=== PATIENT | male | born 2000 | race Caucasian/White ===

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

== ENCOUNTER 2022-05-25 05:44 | Emergency (ER) | payer OTHER, BC, SELFPAY ==
--- NOTE | ~2022-05-25 | CT_ITS ---
EXAMINATION: CT abdomen pelvis wo con DATE: 05/25/2022 08:48 INDICATION: Hematuria, left lower abdominal pain TECHNIQUE: Computed tomography (CT) of the abdomen and pelvis was performed without intravenous contr ast. The dose-length product (DLP) was 764.43 mGy-cm. Automated exposure control and iterative recons truction technique were employed. COMPARISON: None FINDINGS: The lung bases are clear. The heart size is normal. The liver is diffusely low in attenuati on when compared with the spleen, consistent with hepatic steatosis. Punctate calcifications in an ot herwise normal spleen likely represent healed granulomatous disease. The pancreas, gallbladder, and a drenal glands are normal. The kidneys are unremarkable. No stones are identified in the kidneys, uret ers, or bladder. No hydronephrosis or hydroureter. No pathologically enlarged abdominal or pelvic lym ph nodes are identified. There is no free intraperitoneal gas or evidence of bowel obstruction. The a ppendix is normal. IMPRESSION: 1. No CT correlate for the patient's symptoms. 2. Diffuse hepatic steatosis. Reviewed, dictated and finalized at location A. [employer]
[2022-05-25 05:47] VITALS: BP 137/84; PULSE 89; RESP 16; TEMP 36.3; O2SAT 100
[2022-05-25 06:43] LABS: Mucus Urine Few /lpf; RBC Urine >75 /hpf (0-2)
[2022-05-25 06:44] LABS: Basophils Percent Auto 0.2 % (0.2-1.2); Eosinophils Absolute Auto 0.1 K/mm3 (0-0.3); Eosinophils Percent Auto 0.5 % (0-4.4); Hemoglobin 16.1 g/dL (14.0-18.0); Immature Granulocyte Absolute 0.05 K/mm3 (0.00-0.031); Immature Granulocyte Percent A 0.5 % (0-0.5); Lymphocytes Absolute Auto 2.14 K/mm3 (0.9-3.2); Lymphocytes Percent Auto 22.1 % (18.3-44.2); Mean Corpuscular Hemoglobin 30.9 pg (26-34); Mean Corpuscular Volume 88.3 fl (80-100); Mean Platelet Volume 10.2 fl (7.4-10.4); Monocytes Absolute Auto 0.7 K/mm3 (0.1-0.6); Monocytes Percent Auto 7.2 % (2.6-8.5); Neutrophils Absolute Auto 6.7 K/mm3 (1.3-6.7); Neutrophils Percent Auto 69.5 % (45.5-73.1); Platelet Count Result 319 k/mm3 (150-375); Red Blood Count 5.21 M/mm3 (4.6-6.20); Red Cell Distribution Width 12.5 % (11.5-14.5); White Blood Count 9.7 K/mm3 (4.5-10.0)
[2022-05-25 06:45] LABS: Alanine Aminotransferase 70 U/L (6-50); Albumin Level 5.1 g/dL (3.5-5.1); Alkaline Phosphatase 64 U/L (38-126); Anion Gap 11 mmol/L (8-16); Aspartate Amino Transferase 44 U/L (17-59); Bilirubin,Total 0.6 mg/dL (0.2-1.3); Blood Urea Nitrogen 15 mg/dL (9-20); Calcium 9.4 mg/dL (8.4-10.2); Carbon Dioxide 24 mmol/L (22-30); Chloride 101 mmol/L (98-107); Estimated CRCL calculation 139 ml/min; Estimated Glomerular Filt Rate > 60; Glucose 127 mg/dL (65-110); Potassium 3.5 mmol/L (3.4-5.0); Sodium 136 mmol/L (137-145)
[2022-05-25 06:50] LABS: Add Urine Microscopic? YES; Appearance Urine Cloudy (Clear); Color Urine Light Red (Yellow)
--- NOTE | 2022-05-25 08:33 | ED.GENADULT ---
HPI - General Adult General Chief complaint: Abdominal Pain Stated complaint: abdominal pain Time Seen by Provider: 05/25/22 08:28 History of Present Illness HPI narrative: 22-year-old male presents for evaluation of left flank pain. The pain woke him up at 2 and was severe in intensity for about 2 hours. Related Data Allergies Allergy/AdvReac Type Severity Reaction Status Date / Time No Known Allergies Allergy Verified 05/25/22 05:45 [facility] Past Medical History Medical History (Updated 05/21/20 @ 00:00 by Background Damarlene) Anxiety Finger fracture H/O hypospadias Course Vital Signs Vital signs: Vital Signs Temperature 97.3 F L 05/25/22 05:47 Pulse Rate 89 05/25/22 05:47 Respiratory Rate 16 05/25/22 05:47 Blood Pressure 137/84 05/25/22 05:47 Pulse Oximetry 100 05/25/22 05:47 Oxygen Delivery Room Air 05/25/22 05:47 Temperature 97.3 F L 05/25/22 05:47 Pulse Rate 89 05/25/22 05:47 Respiratory Rate 16 05/25/22 05:47 Blood Pressure 137/84 05/25/22 05:47 Pulse Oximetry 100 05/25/22 05:47 Oxygen Delivery Room Air 05/25/22 05:47 Medical Decision Making Vital Signs Vital Signs: Vital Signs Temperature 97.3 F L 05/25/22 05:47 Pulse Rate 89 05/25/22 05:47 Respiratory Rate 16 05/25/22 05:47 Blood Pressure 137/84 05/25/22 05:47 Pulse Oximetry 100 05/25/22 05:47 Oxygen Delivery Room Air 05/25/22 05:47 Temperature 97.3 F L 05/25/22 05:47 Pulse Rate 89 05/25/22 05:47 Respiratory Rate 16 05/25/22 05:47 Blood Pressure 137/84 05/25/22 05:47 Pulse Oximetry 100 05/25/22 05:47 Oxygen Delivery Room Air 05/25/22 05:47 Lab Data 05/25/22 06:14 05/25/22 06:14 Labs: Lab Results 05/25/22 05/25/22 05/25/22 Range/Units 05:54 06:14 06:14 WBC 9.7 (4.5-10.0) K/mm3 RBC 5.21 (4.6-6.20) M/mm3 Hgb 16.1 (14.0-18.0) g/dL Hct 46.0 (42.0-52.0) % MCV 88.3 (80-100) fl MCH 30.9 (26-34) pg MCHC 35.0 (32-36) g/dl RDW 12.5 (11.5-14.5) % Plt Count 319 (150-375) k/mm3 MPV 10.2 (7.4-10.4) fl Immature Gran % (Auto) 0.5 (0-0.5) % Neut % (Auto) 69.5 (45.5-73.1) % Lymph % (Auto) 22.1 (18.3-44.2) % Hill % (Auto) 7.2 (2.6-8.5) % Eos % (Auto) 0.5 (0-4.4) % Baso % (Auto) 0.2 (0.2-1.2) % Lymph # (Auto) 2.14 (0.9-3.2) K/mm3 Hill # (Auto) 0.7 H (0.1-0.6) K/mm3 Eos # (Auto) 0.1 (0-0.3) K/mm3 Baso # (Auto) 0.0 (0.0-0.1) K/mm3 Abs Immat Gran (auto) 0.05 H (0.00-0.031) K/mm3 Absolute Neuts (auto) 6.7 (1.3-6.7) K/mm3 Absolute Nucleated RBC 0.0 (0.0-0.012) K/mm3 Nucleated RBC % 0.0 (0.0-0.2) % Sodium 136 L (137-145) mmol/L Potassium 3.5 (3.4-5.0) mmol/L Chloride 101 (98-107) mmol/L Carbon Dioxide 24 (22-30) mmol/L Anion Gap 11 (8-16) mmol/L BUN 15 (9-20) mg/dL Creatinine 0.90 (0.7-1.3) mg/dL Estim Creat Clear Calc 139 ml/min Estimated GFR > 60 (59 - ) Glucose 127 H (65-110) mg/dL Calcium 9.4 (8.4-10.2) mg/dL Total Bilirubin 0.6 (0.2-1.3) mg/dL AST 44 (17-59) U/L ALT 70 H (6-50) U/L Alkaline Phosphatase 64 (38-126) U/L Total Protein 9.0 H (6.3-8.2) g/dL Albumin 5.1 (3.5-5.1) g/dL Urine Color Light red H (Yellow) Urine Appearance Cloudy H (Clear) Urine pH TNP Ur Specific [place] TNP Urine Protein TNP Urine Glucose (UA) TNP Urine Ketones TNP Ur Blood (Man) TNP Urine Nitrate TNP Urine Bilirubin TNP Urine Urobilinogen TNP Leukocyte Esterase Rfl TNP Urine RBC >75 H (0-2) /hpf Urine WBC 10-15 H /hpf Urine Mucus Few H /lpf Discharge Plan Discharge Instructions: Antibiotic Form Prescriptions: No Action chlorhexidine gluconate [Scrub Chlorhexidine Gluconate] 4 % liquid 1 applic topical Q1-2D Qty: 3800 0RF Rx Instructions: as a single dose
[2022-05-25] MEDS: LACTATED RINGERS 1,000 ML 999 ML IV CONT (09:22)
[2022-05-25 12:02] VITALS: BP 127/75; PULSE 82; RESP 18; O2SAT 99
== END 2022-05-25 12:04 | disposition home or self-care (01) ==
PROVIDERS: Emergency Medicine; Emergency Provider Emergency Medicine
DX: R10.9 Unspecified abdominal pain (principal); K76.0 Fatty (change of) liver, not elsewhere classified
CPT/HCPCS: 36415; 74176; 80053; 81001; 85025; 87086; 96360; 99284; J7120

== ENCOUNTER 2023-02-13 15:56 | Emergency (ER) | payer OTHER, BC, SELFPAY ==
[2023-02-13 16:04] VITALS: BP 135/74; PULSE 105; RESP 16; TEMP 36.8; O2SAT 99
--- NOTE | 2023-02-13 16:04 | ED.URI ---
HPI - URI/Sore Throat General Chief Complaint: Upper Respiratory Infection Stated Complaint: Sinus Congestion/Cough Source: patient and RN notes reviewed History of Present Illness HPI Narrative: 22 yo M presents to urgent care with complaints of congestion for about 1 week. Pt states he developed a subjective fever and productive cough last night. Pt states he has noticed blood streaks in his sputum. Pt reports a URIBE and nausea as well. Pt denies any V/D, chest pain, abdominal pain, ear pain, or sore throat. Pt has been taking Claritin at home. Related Data Allergies Allergy/AdvReac Type Severity Reaction Status Date / Time No Known Allergies Allergy Verified 05/25/22 05:45 Review of Systems Review of Systems: Pertinent positives and pertinent negatives per HPI. [facility] Past Medical History Medical History (Updated 02/13/23 @ 16:15 by Mercedes Bennett, LEMUEL) Anxiety Finger fracture H/O hypospadias Comments At the time of my signature, I reviewed and agree with the nursing past medical, surgical, social, and family history. There is no relevant family history pertinent to the patient complaint. Exam Narrative: GENERAL: This is a well-nourished, well-developed patient, in no apparent distress. HEAD: normocephalic, atraumatic. EYES: Sclera clear/white. Vision is grossly intact. EARS: External ears normal, auditory canals clear and without drainage, TMs normal without perforation. Hearing grossly intact. NOSE: External nose normal with no obvious nasal discharge, nares without redness, no rhinorrhea. THROAT: Mucous membranes moist, posterior pharynx clear. NECK: Neck supple, non-tender without lymphadenopathy, masses or thyromegaly. CARDIOVASCULAR: Regular rate and rhythm without murmurs, gallops, or rubs. RESPIRATORY: Clear to auscultation. Breath sounds equal bilaterally. No wheezes, rales, or rhonchi. SKIN: warm, intact with no suspicious lesions or rash, good texture and turgor. NEURO: awake, alert, and oriented to person, place and time. There were no obvious focal neurologic abnormalities. EXTREMITIES: No clubbing, cyanosis, or edema. No joint tenderness, effusion, or edema noted. BACK: Nontender without deformity or crepitus. No flank tenderness. Course Course Level of Care: Express Care Visit Vital Signs Vital signs: Vital Signs Temperature 98.2 F 02/13/23 16:04 Pulse Rate 105 H 02/13/23 16:04 Respiratory Rate 16 02/13/23 16:04 Blood Pressure 135/74 02/13/23 16:04 Pulse Oximetry 99 02/13/23 16:04 Oxygen Delivery Room Air 02/13/23 16:04 Temperature 98.2 F 02/13/23 16:04 Pulse Rate 105 H 02/13/23 16:04 Respiratory Rate 16 02/13/23 16:04 Blood Pressure 135/74 02/13/23 16:04 Pulse Oximetry 99 02/13/23 16:04 Oxygen Delivery Room Air 02/13/23 16:04 Reviewed MDM - URI/Sore Throat MDM Narrative Medical decision making narrative: Viral illness may last between 7-12days; antibiotic is NOT recommended at this time. Recommend antihistamine such as Benadryl at night time and Claritin/Zyrtec/Radha during the day. Increase your Vitamin C intake. Steam from hot showers help with congestion. Also, recommend symptomatic treatment includes: rest, fluids, increase humidity of the air at home with a humidifier in the bedroom. Recommend Acetaminophen or nonsteroidal anti-inflammatory agents(NSAIDs) as directed in the bottle to reduce fever and/pain/headache. Avoid smoking/second-hand smoke. Limit visits to areas with large crowds. Frequent hand washing or hand excel expert is one of the best ways to prevent spread of infection. Pt was encouraged to stop taking the Claritin and use a humidifier in his bedroom. Pt looks very well. Is not congested or in NAD. Pt states he is mainly here to see if he can get a work note for tomorrow. Differential Diagnosis Differential diagnosis: Likely upper respiratory infection, sinusitis and viral infection Critical Care Time
== END 2023-02-13 16:32 | disposition home or self-care (01) ==
PROVIDERS: Emergency Provider Nurse Practitioner Family
DX: J06.9 Acute upper respiratory infection, unspecified (principal)
CPT/HCPCS: 99213; G0463

== ENCOUNTER 2023-09-08 16:26 | Emergency (ER) | payer OTHER, BC, SELFPAY ==
[2023-09-08 16:33] VITALS: BP 146/58; PULSE 85; RESP 20; TEMP 36.7; O2SAT 100
--- NOTE | 2023-09-08 16:49 | ED.GENADULT ---
HPI - General Adult General Chief complaint: Abdominal Pain Stated complaint: fever/aches/stomach Time Seen by Provider: 09/08/23 16:45 Source: patient, RN notes reviewed and old records reviewed Mode of arrival: ambulatory Limitations: no limitations History of Present Illness HPI narrative: 23 year old male who presents to [facility] care with complaints of some stomach ache with some nausea and low grade fever starting this morning with headache discomfort.. Patient reports that he went to work and just couldn't make it all day. He states that there have been 3 or 4 guys at work that have had to go home from work lately due to illness. Patient states that he took some Tylenol for his headache and he does feel a little better. He needs a note to return to work.Patient reports no vomiting or diarrhea. MD complaint: stomach ache, low grade fever, body ache and headache this morning Onset (ago): day(s) (this morning) Severity scale (1-10): 3 Quality: aching Treatments prior to arrival: other (Tylenol) Related Data Allergies Allergy/AdvReac Type Severity Reaction Status Date / Time No Known Allergies Allergy Verified 09/08/23 16:51 Review of Systems Review of Systems: CONSTITUTIONAL: Reports malaise,no chills, sweats, low grade temp reported . EYES: Denies visual changes, redness, or discharge. ENT: Reports no rhinorrhea, congestion, sinus pain,no otalgia and no sore throat. CARDIOVASCULAR: Denies chest pain, palpitations, or edema. RESPIRATORY: Reports no cough.? Denies dyspnea. GASTROINTESTINAL:Stomach ache,positive for nausea, no vomiting, diarrhea,denies any right lower quadrant abdominal pain SKIN: Denies rash or itching. MUSCULOSKELETAL: Denies myalgia. NEUROLOGIC:Positive for headache. All systems reviewed & are unremarkable except as noted in HPI and below PMFSH Past Medical History Medical History (Updated 09/09/23 @ 16:40 by Michelle Eckert NP) Anxiety Finger fracture H/O hypospadias History of repaired hypospadias Surgical History Surgical History (Updated 09/09/23 @ 16:40 by Michelle Eckert NP) History of placement of ear tubes Social History Social History Smoking status: Current every day smoker Tobacco type: e-cigarettes/vaping Alcohol intake: current Alcohol use details: social Substance use type: does not use Living arrangements: with family Gender identity (if verbalized by the patient): Male Comments At time of signature, agree with nursing past medical, surgical, social and family history. There is no relevant family history pertinent to the presenting complaint Exam Narrative: GENERAL: Well-appearing, well-nourished, and in no acute distress. HEAD: Normocephalic EYES: PERRLA, conjunctivae clear ENT: Nares clear, turbinates edematous and erythematous, clear discharge. Mucous membranes moist. TM pearly griggs with dull light reflex bilaterally; no tragal tenderness. Oropharynx erythematous without lesions. Tonsils not enlarged and without exudate, no drooling, no hoarseness, no trismus, uvula midline. NECK: Supple. No lymphadenopathy CHEST: Clear to auscultation, breath sounds equal. No wheezing, rhonchi, rales, or stridor. No respiratory distress, speaks in full sentences.no cough noted SAO2 100% on room air HEART: Regular rate and rhythm. No murmur heard. SKIN: Warm, dry, no rash. NEURO: Alert and oriented x3. PSYCH: Normal mood and affect Course Course Emergency Course: Patient is aware of diagnosis, understands and agrees to treatment plan.? Anticipatory guidance given.? Patient agrees to follow-up as directed and is aware of reasons to seek care at the emergency department. Portions of this record may have been created with voice recognition software Level of Care: Express Care Visit Vital Signs Vital signs: Vital Signs Temperature 36.7 C 09/08/23 16:33 Pulse Rate
== END 2023-09-08 17:35 | disposition home or self-care (01) ==
PROVIDERS: Emergency Provider Registered Nurse
DX: B34.9 Viral infection, unspecified (principal); Z20.822 Contact with and (suspected) exposure to COVID-19; F17.290 Nicotine dependence, other tobacco product, uncomplicated
CPT/HCPCS: 87426; 87804; 99213; G0463

== ENCOUNTER 2025-02-02 10:35 | Emergency (ER) | payer BC, OTHER, SELFPAY ==
--- NOTE | ~2025-02-02 | US_ITS ---
EXAMINATION:US right upper quadrant INDICATION: Y PROCEDURE: Realtime High Resolution abdomen ultrasound. COMPARISON: No prior studies for comparison FINDINGS: Gallbladder within normal limits. No gallstones, pericholecystic fluid, gallbladder wall thickening or biliary dilatation. Common bile duct measures 3 mm. Liver echotexture is hyperechoic likely due to fatty infiltration. Pancreas was not adequately visualized for evaluation due to overlying bowel gas. No sonographic Aguilar's sign indicated by the technologist. IMPRESSION: 1: Fatty liver. 2. No sonographic evidence for acute cholecystitis. Small amount of sludge in the gallbladder. 3. Pancreas is not visualized. If symptoms persist or worsen, consider a short-term follow-up study or additional imaging for further assessment. Reviewed, dictated and finalized at location Q. IMPRESSION: 1: Fatty liver. 2. No sonographic evidence for acute cholecystitis. Small amount of sludge in t he gallbladder. 3. Pancreas is not visualized. If symptoms persist or worsen, consider a short-term follow-up study or additio nal imaging for further assessment.
[2025-02-02 10:47] VITALS: BP 123/58; PULSE 66; RESP 18; TEMP 36.6; O2SAT 100
--- OUTSIDE RECORDS SUMMARY | 2025-02-02 10:58 | XMS_ITS | Clinical Summary ---
Author Organization [facility] lto Address [address] [place] [address] Care Team Providers Care Commercial Carpenter Name Role Phone Salomón Anthony MD Primary Care Provider [phone] Allergies No known active allergies Medications No known medications Active Problems No known active problems Immunizations Immunization Administration Dates Next Due Influenza, Trivalent, IM (MDV) 03/22/2013 Surgical History Surgery Date Site/Laterality Comments NO PAST SURGERIES Medical History Medical History Date Comments No pertinent past medical history Family History Medical History Relation Name Comments Psoriasis Mother Relation Name Status Comments Father Mother Alive Social History Tobacco Use Types Packs/Day Years Used Date Smoking Tobacco: Every Day Vaping Smokeless Tobacco: Never Personal Safety Answer Date Recorded Getting School Help Needed Not on file 06/01 Sex and Gender Information Value Date Recorded Sex Assigned at Not on file Legal Sex Male 1:46 AM [employer] Gender Identity Not on file Sexual Orientation Not on file Obstetrics History Last Filed Vital Signs Vital Sign Reading Time Taken Comments Blood Pressure 122/78 04/24/2021 3:30 PM [employer] Pulse 111 04/24/2021 3:30 PM [employer] Temperature 37.7 C (99.9 F) 04/24/2021 3:30 PM [employer] Respiratory Rate 20 04/24/2021 3:30 PM [employer] Oxygen Saturation 99% 04/24/2021 3:30 PM [employer] Inhaled Oxygen Concentration - - Weight 90.7 kg (200 lb) 04/24/2021 3:30 PM [employer] Height 172.7 cm (5' 8) 04/24/2021 3:30 PM [employer] Body Mass Index 30.41 04/24/2021 3:30 PM [employer] Plan of Treatment Not on file Insurance [employer] [place] [facility] HMO/POS Care Teams Commercial Carpenter Relationship Specialty Start Date End Date Salomón Anthony MD [address] [place] [address] PCP - General 04/13/12
[2025-02-02 11:10] LABS: Hematocrit 45.0 % (42.0-52.0); Hemoglobin 15.3 g/dL (14.0-18.0); Immature Granulocyte Percent A 0.7 % (0-0.5); Lymphocytes Absolute Auto 2.07 K/mm3 (0.9-3.2); Mean Corpuscular HGB Conc 34.0 g/dl (32-36); Mean Corpuscular Hemoglobin 30.1 pg (26-34); Mean Corpuscular Volume 88.4 fl (80-100); Nucleated Red Blood Cells Absolute Auto 0.000 K/mm3 (0.0-0.012); Nucleated Red Blood Cells Perc 0.0 % (0.0-0.2); Platelet Count Result 257 k/mm3 (150-375); Red Blood Count 5.09 M/mm3 (4.6-6.20); White Blood Count 5.8 K/mm3 (4.5-10.0)
[2025-02-02 11:12] LABS: Add Urine Microscopic? NO; Appearance Urine Clear (Clear); Glucose Urine UA Negative (Negative); Leukocyte Esterase Ur Negative LEU/UL (Negative); Nitrate Urine Negative (Negative); Specific Grav Ur 1.016 (1.001-1.035)
[2025-02-02 11:28] LABS: Alanine Aminotransferase 32 U/L (6-50); Albumin Level 4.9 g/dL (3.5-5.1); Alkaline Phosphatase 52 U/L (38-126); Anion Gap 10 mmol/L (4-12); Aspartate Amino Transferase 34 U/L (17-59); Bilirubin,Total 0.3 mg/dL (0.2-1.3); Blood Urea Nitrogen 13 mg/dL (9-20); Calcium 9.5 mg/dL (8.4-10.2); Carbon Dioxide 25 mmol/L (22-30); Chloride 104 mmol/L (98-107); Estimated CRCL calculation 130 ml/min; Estimated Glomerular Filt Rate > 60; Glucose 110 mg/dL (65-110); Lipase 100 U/L (23-300); Potassium 4.1 mmol/L (3.4-5.0); Sodium 139 mmol/L (137-145); Total Protein 8.5 g/dL (6.3-8.2)
--- OUTSIDE RECORDS SUMMARY | 2025-02-02 12:32 | XMS_ITS | Clinical Summary ---
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 Fast Food Name Role Phone Unavailable Primary Care Provider Unavailabl e Social History Tobacco Use Types Packs/Day Years Used Date Smoking Tobacco: Never Assessed Sex and Gender Information Value Date Recorded Sex Assigned at Not on file Legal Sex Male 8:59 AM CDT Gender Identity Not on file Sexual Orientation Not on file Plan of Treatment Upcoming Encounters Date Type Department Care Team (Late st Contact Info) Description 02/22/2025 7:00 AM CDT Appointment [facility] [address] Jose Roberto Rojas MD [address] [place] [address] [phone] 02/22/2025 11:15 AM CDT Appointment [place] [address] Jose Roberto Rojas MD [facility] [place], [place] [id number] Health Maintenance Due Date Last Done Comments Annual Physical 2005 HPV Vaccines (1 - Male 3-dos e series) 2017 Meningococcal B Vaccine (1 o f 2 - Standard) 2018 Hepatitis C 2020 DTaP, Tdap and Td Vaccines ( 1 - Tdap) 2021 Hepatitis B Vaccines (1 of 3 - 19+ 3-dose series) 2021 COVID-19 Vaccine ( - 2023-2 5 season) 2024 Meningococcal Vaccine Aged Out No carlos cristian eligible based on patient's age to complete this topic Pneumococcal Vaccine: Pediat rics (0 to 5 Years) and At-Risk Patients (6 to 49 Years) Aged Out No longer eligible b ased on patient's age to complete this topic RSV Immunizations Under 20 Months Aged Out No longer eligible based on patient's age to complete this topic Insurance [facility]
--- NOTE | 2025-02-02 12:40 | ED.ABDPAIN ---
HPI - Abdominal Pain General Chief Complaint: Abdominal Pain Stated Complaint: abd pain x 2 months, N/V Time Seen by Provider: 02/02/25 11:39 Source: patient Mode of arrival: ambulatory Limitations: no limitations History of Present Illness HPI narrative: This is a 24 year old male that presents to the ER for epigastric/right upper quadrant abdominal pain. Ongoing over the last 5 months. Associated with nausea and vomiting. Worse in the morning. Reports he has been seeing GI for this. Has had upper endoscopy. Takes a PPI daily. He is scheduled for more tests in the next month. Denies any current pain. Related Data Allergies Allergy/AdvReac Type Severity Reaction Status Date / Time No Known Allergies Allergy Verified 02/02/25 10:50 Review of Systems Review of Systems: All systems reviewed & are unremarkable except as noted in HPI and below PMFSH Past Medical History Medical History (Updated 02/02/25 @ 14:56 by Elana Goldman PA-C) History of repaired hypospadias Finger fracture Anxiety H/O hypospadias Surgical History Surgical History (Updated 09/09/23 @ 16:40 by Michelle Eckert NP) History of placement of ear tubes Social History Social History Smoking status: Current every day smoker Tobacco type: e-cigarettes/vaping Alcohol intake: current Alcohol use details: social Substance use type: does not use Living arrangements: with family Gender identity (if verbalized by the patient): Male Exam Narrative: GENERAL: Well-appearing, well-nourished, and in no acute distress. HEAD: Normocephalic, atraumatic. EYES: EOMI. CHEST: Clear to auscultation. No respiratory distress. No wheezes rales or rhonchi HEART: Regular rate and rhythm. No murmur heard. Normal peripheral pulses. ABDOMEN: Soft, nontender, nondistended, normal active bowel sounds. EXTREMITIES: Normal range of motion. No edema. SKIN: Warm, dry, no rash. NEURO: No focal deficits. Alert and oriented x3. PSYCH: Normal mood and affect Course Vital Signs Vital signs: Vital Signs Temperature 97.8 F 02/02/25 10:47 Pulse Rate 66 02/02/25 10:47 Respiratory Rate 18 02/02/25 10:47 Blood Pressure 123/58 L 02/02/25 10:47 Pulse Oximetry 100 02/02/25 10:47 Oxygen Delivery Room Air 02/02/25 10:47 Temperature 97.8 F 02/02/25 10:47 Pulse Rate 66 02/02/25 10:47 Respiratory Rate 18 02/02/25 10:47 Blood Pressure 123/58 L 02/02/25 10:47 Pulse Oximetry 100 02/02/25 10:47 Oxygen Delivery Room Air 02/02/25 10:47 MDM - Abdominal Pain MDM Narrative Medical decision making narrative: Patient presents the emergency department for right upper quadrant abdominal pain, ongoing over the last 5 months. He has been following with Gastroenterology for this. He is afebrile and nontoxic appearing. His vitals are stable. Cbc without leukocytosis. Metabolic panel and lipase without concerning findings. Urine without evidence of infection. Right upper quadrant ultrasound shows fatty liver, small amount of gallbladder sludge, otherwise gallbladder is normal without stones present. Patient updated on his workup and agrees with plan of care. 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 He was given warnings to return to the ER Differential Diagnosis Differential diagnosis: Likely other (GERD, esophagitis, biliary colic, cholecystitis) Lab Data Attestation: I reviewed the patient's lab results. 02/02/25 11:04 02/02/25 11:04 Labs: Lab Results 02/02/25 Range/Units 11:04 WBC 5.8 (4.5-10.0) K/mm3 RBC 5.09 (4.6-6.20) M/mm3 Hgb 15.3 (14.0-18.0) g/dL Hct 45.0 (42.0-52.0) % MCV 88.4 (80-100) fl MCH 30.1 (26-34) pg MCHC 34.0 (32-36) g/dl RDW 12.6 (11.5-14.5) % Plt Count 257 (150-375) k/mm3 MPV 10.0 (7.4-10.4) fl Immature Gran % (Auto) 0.7 H (0-0.5) % Neut % (Auto) 56.9 (45.5-73.1) % Lymph % (Auto) 35.6 (18.3-44.2) % [place] % (Auto) 6.0 (2.6-8.5) % Eos % (Auto) 0.3 (0-4.4) % Baso % (Auto) 0.5 (0.2-1.2) % Lymph # (Auto) 2.07 (0.9-3.2) K/mm3 [place] # (Auto) 0.4 (0.1-0.6) K/mm3 Eos # (Auto) 0.0 (0-0.3) K/mm3 Baso # (Auto) 0.0 (0.0-0.1) K/mm3 Abs Immat Gran (auto) 0.04 H (0.00-0.031) K/mm3 Absolute Neuts (auto) 3.3 (1.3-6.7) K/mm3 Absolute Nucleated RBC 0.000 (0.0-0.012) K/mm3 Nucleated RBC % 0.0 (0.0-0.2) % Sodium 139 (137-145) mmol/L Potassium 4.1 (3.4-5.0) mmol/L Chloride 104 (98-107) mmol/L Carbon Dioxide 25 (22-30) mmol/L Anion Gap 10 (4-12) mmol/L BUN 13 (9-20) mg/dL Creatinine 0.80 (0.7-1.3) mg/dL Estim Creat Clear Calc 130 ml/min Estimated GFR > 60 (59 - ) Glucose 110 (65-110) mg/dL Calcium 9.5 (8.4-10.2) mg/dL Total Bilirubin 0.3 (0.2-1.3) mg/dL AST 34 (17-59) U/L ALT 32 (6-50) U/L Alkaline Phosphatase 52 (38-126) U/L Total Protein 8.5 H (6.3-8.2) g/dL Albumin 4.9 (3.5-5.1) g/dL Lipase 100 (23-300) U/L Urine Color Yellow (Yellow) Urine Appearance Clear (Clear) Urine pH 8.5 (5.0-9.0) Ur Specific [place] 1.016 (1.001-1.035) Urine Protein Negative (Negative) mg/dL Urine Glucose (UA) Negative (Negative) mg/dL Urine Ketones Negative (Negative) mg/dL Ur Blood (Man) Negative (Negative) Urine Nitrate Negative (Negative) Urine Bilirubin Negative (Negative) Urine Urobilinogen 0.2 (<2.0) mg/dL Leukocyte Esterase Rfl Negative (Negative) MEG/UL Imaging Data Radiologist's impression: ITS Impressions Upper Quadrant Ultrasound 02/02/25 13:17 IMPRESSION: 1: Fatty liver. 2. No sonographic evidence for acute cholecystitis. Small amount of sludge in the gallbladder. 3. Pancreas is not visualized. If symptoms persist or worsen, consider a short-term follow-up study or additional imaging for further assessment. Critical Care Time Critical Care Time Critical Care Time: No Discharge Plan Discharge Clinical Impression: Chronic right upper quadrant pain Patient Disposition: Home Condition: Stable Instructions: Low Fat Diet (ED), Abdominal Pain (ED) Additional Instructions: Return to the ER if you experience fever, abdominal pain with nausea and vomiting, you are unable to keep down liquids or solids, or any other symptoms that are concerning to you Continue omeprazole as prescribed. Low fat diet Follow up with your tongue and groove machine operator Patient Language: Nigerien Prescriptions: No Action ondansetron 4 mg tablet,disintegrating 4 mg PO Q6H PRN (Reason: nausea and vomiting) Qty: 14 0RF Follow-up/Referrals: PHYSICIAN,STAFF REPORTER [Primary Care Provider, Internal Medicine]
== END 2025-02-02 15:15 | disposition home or self-care (01) ==
PROVIDERS: Emergency Provider Physician Assistant
DX: R10.11 Right upper quadrant pain (principal); F41.9 Anxiety disorder, unspecified
CPT/HCPCS: 36415; 76705; 80053; 81003; 83690; 85025; 99284